=== PATIENT | male | born 1995 | race Caucasian/White ===

== ENCOUNTER 2021-11-07 22:55 | Emergency (ER) | payer SELFPAY ==
[~2021-11-07] VITALS: Ht 185.4 cm; Wt 108.9 kg
[2021-11-07 23:01] VITALS: BP_SYST 141
--- NOTE | 2021-11-07 23:30 | NUR ---
PATIENT LEFT WITHOUT BEING SEEN
== END 2021-11-07 23:30 | disposition left against medical advice (07) ==
LOC: SED 22:55
DX: T43.621A Poisoning by amphetamines, accidental (unintentional), initial encounter (principal); Y92.89 Other specified places as the place of occurrence of the external cause; Z53.21 Procedure and treatment not carried out due to patient leaving prior to being seen by health care provider

== ENCOUNTER 2024-01-22 21:17 | Emergency (ER) | payer OTHER ==
[~2024-01-22] VITALS: Ht 185.4 cm; Wt 117.9 kg
[2024-01-22 21:52] VITALS: BP_SYST 151; PULSE 95; RESP 18; TEMP 99; O2SAT 99
[2024-01-23 00:12] LABS: ALBUMIN 3.4 g/dL (3.4-4.8); CALCIUM 8.5 mg/dL (8.4-11.0); CREATININE 1.06 mg/dL (0.55-1.30); POTASSIUM 3.3 mmol/L (3.5-5.1); TOTAL BILIRUBIN 0.3 mg/dL (0.0-1.0); TOTAL PROTEIN, SERUM 7.1 g/dL (6.4-8.3)
[2024-01-23 00:16] LABS: BASOPHILS % (AUTO) 0.4 % (0.0-2.0); EOSINOPHILS # (AUTO) 0.4 K/uL (0.0-0.4); EOSINOPHILS % (AUTO) 4.4 % (0.0-4.0); HEMATOCRIT 41.3 % (36-54); HEMOGLOBIN 14.7 g/dL (14.0-18.0); LYMPHOCYTES # (AUTO) 2.3 K/uL (1.0-5.5); LYMPHOCYTES % (AUTO) 25.2 % (20.5-51.5); MEAN CORPUSCULAR HEMOGLOBIN 31 pg (27-31); MEAN CORPUSCULAR HGB CONC 36 % (32-36); MEAN CORPUSCULAR VOLUME 87 fL (79.0-98.0); MONOCYTES # (AUTO) 0.8 K/uL (0.0-1.0); NEUTROPHILS # (AUTO) 5.5 K/uL (1.8-7.7); PLATELET COUNT (AUTO) 242 K/uL (130-430); RED BLOOD CELL COUNT(AUTO) 4.75 MIL/uL (4.2-6.2); RED CELL DISTRIBUTION WIDTH 12.7 % (9.0-15.0); WHITE BLOOD COUNT (AUTO) 9.1 K/uL (4.8-10.8)
[2024-01-23] MEDS: cefTRIAXone 1 GM in LIDOCAINE 1%, 20 ML MDV 2.1 ML IM ONE (01:18)
[2024-01-23] MEDS: KETOROLAC TROMETHAMINE 30 MG VIAL IM ONE (01:26)
[2024-01-23] MEDS ORDERED: ACET-2634 PO ×2 (01:32→19:33)
[2024-01-23] MEDS ORDERED: SULF1TAB48 PO ×2 (01:32→19:33)
[2024-01-23] MEDS ORDERED: IBUP-1969 PO ×2 (01:32→19:33)
[2024-01-23] MEDS ORDERED: AMLO5TAB4 PO ×2 (01:33→19:33)
[2024-01-23 01:59] VITALS: BP_SYST 137; PULSE 98; RESP 15; TEMP 97.2; O2SAT 99
== END 2024-01-23 01:50 | disposition home or self-care (01) ==
LOC: SED 21:17
DX: L03.116 Cellulitis of left lower limb (principal); R03.0 Elevated blood-pressure reading, without diagnosis of hypertension; F19.10 Other psychoactive substance abuse, uncomplicated; F17.200 Nicotine dependence, unspecified, uncomplicated; R60.0 Localized edema; Z79.899 Other long term (current) drug therapy
CPT/HCPCS: 99285; 93971; 80053; 85025; 36415; 96372; J0696; J1885; J2003